=== PATIENT | male | born 1950 | race Caucasian/White ===

== ENCOUNTER → 2020-12-26 08:43 | Outpatient (CLI) | payer MEDICARE, OTHER ==
--- NOTE | ~2020-12-26 | EC ---
PATIENT:KACIE COOK DATE OF SERVICE: 12/26/20 SEX: M MEDICAL RECORD: [id number] DATE OF : 48 LOCATION:[facility] AGE OF PATIENT: 70 ADMISSION DATE: 12/26/20 REFERRING PHYSICIAN: INTERPRETING PHYSICIAN: ORALIA JAMES MD ECHOCARDIOGRAM REPORT ECHO CHARGES 4 ECHO COMPLETE Date: 12/26/20 CLINICAL DIAGNOSIS: CARDIAC NURMUR ECHOCARDIOGRAPHIC MEASUREMENTS (adult normal given) AC root (d.<3.7cm) 3.3 cm LV Septum d (<1.2 cm> 1.3 cm Valve Excursion 1.5 cm LV Septum (systole) 1.5 cm Left Atria (s.<4.0cm> 4.6 cm LVPW d(<1.2cm) 1.3 cm RV (d.<2.3cm) 4.1 cm LVPW (sytole) 1.2 cm LV diastole(<5.6CM) 5.0 cm MV E-F(>70mm/sec) cm LV systole 2.9 cm LVOT Diameter 1.8 cm MV exc.(>10mm) cm Est.ejection fraction (50-75%) 55 % DOPPLER: LVIT cm/sec A 104 cm/sec E 95 cm/sec LA cm/sec RVSP 95 mmHg LVOT 135 cm/sec AOP1/2T m/s Asc. Ao 215 cm/sec RVOT 95 cm/sec RA 3.4 cm/sec PA 124 cm/sec AV Gradient Peak 18 mmHg AV Mean 11 mmHg AV Area 1.7 cm MV Gradient Peak 5 mmHg MV Mean 2 mmHg MV Area cm COMMENTS: Apprentice Jockey: Delfina SOLORIO Aerial Lineman: 3 Dr. Howard TAPE# Pericardial Effusion N DATE OF SERVICE: FINDINGS: Mild LVH. LV internal dimension is normal. Wall motion is normal. EF is greater than or equal to 55%. Aortic valve is tricuspid. No evidence of stenosis by Doppler interrogation. Left atrium is dilated at 4.6 cm. Mitral valve shows no prolapse. Trace MR. Right side is grossly normal. Mild TR. TRANSINT:[id number] Voice Confirmation ID: [id number] DOCUMENT ID: [id number] ECHOCARDIOGRAM REPORT [id number] KACIE COOK ORALIA JAMES MD CC: [id number] DICTATION DATE: 12/26/20 1312 ONCOLOGY SOCIAL WORKER: 12/26/20 2308 [facility] [address] [id number]
== END | disposition home or self-care (01) ==
LOC: D.ECHO 08:43
PROVIDERS: ATTEND Family Medicine
DX: R01.1 Cardiac murmur, unspecified (principal)

== ENCOUNTER 2021-01-08 08:28 | Emergency (ER) | payer MEDICARE, OTHER ==
[~2021-01-08] VITALS: Ht 170.2 cm; Wt 104.5 kg
[2021-01-08 08:30] VITALS: BP 152/83; Ht 170.2 cm; Wt 104.5 kg
[2021-01-08] MEDS ORDERED: HYDROCODON-ACE1 EA10 PO (08:33)
[2021-01-08] MEDS ORDERED: FOLIC ACID1 MG PO (08:33)
[2021-01-08] MEDS ORDERED: ASPIRIN81 MG PO (08:33)
[2021-01-08] MEDS ORDERED: DONEPEZIL HCL5 MG PO (08:34)
[2021-01-08] MEDS ORDERED: TREXALL5 MG PO (08:34)
[2021-01-08] MEDS ORDERED: LISINOPRIL5 MG PO (08:35)
[2021-01-08 08:56] LABS: BASOPHILS 1.1 % (0-2); EOSINOPHILS 2.3 % (0-7); HEMATOCRIT 48.9 % (42.0-54.0); LYMPHOCYTES 30.6 % (15-50); MCH 29.4 pg (26.0-34.0); MCHC 32.7 g/dL (31.0-37.0); MCV 89.8 fL (80.0-100.0); MONOCYTES 9.2 % (2-11); NEUTROPHILS 56.8 % (40-80); PLATELET COUNT 489 10x3/uL (130-400); RBC 5.45 10x6/uL (4.20-6.10); WBC 11.6 10x3/uL (4.8-10.8)
[2021-01-08 09:07] LABS: CALC OSMOLALITY 279 mosm/kg (275-300); CALCIUM 8.7 mg/dL (8.5-10.1); CARBON DIOXIDE 27.7 mmol/L (21.0-32.0); CHLORIDE - SERUM 100 mmol/L (98-107); CREATININE - SERUM 1.3 mg/dL (0.6-1.3); GLUCOSE 164 mg/dL (74-106); POTASSIUM - SERUM 3.5 mmol/L (3.5-5.1); SODIUM 137 mmol/L (136-145); UREA NITROGEN 18 mg/dL (7-18); eGFR NON AFRICAN AMERICAN 58 mL/min (90-120)
[2021-01-08 09:25] LABS: ALBUMIN 3.8 g/dL (3.4-5.0); ALKALINE PHOSPHATASE 111 U/L (30-120); ALT (SGPT) 49 U/L (10-68); BILIRUBIN - TOTAL 0.76 mg/dL (0.2-1.3); CKMB 1.9 U/L (0.0-3.6); CREATINE KINASE 131 UL (21-232); PRO BNP 17 pg/mL (0-125); PROTEIN - SERUM 7.5 g/dL (6.4-8.2); TROPONIN-I < 0.017 ng/mL (0.000-0.060)
[2021-01-08 09:26] LABS: PROTIME 12.1 SECONDS (11.6-15.0)
[2021-01-08 09:27] LABS: INR 0.99 (0.85-1.17)
[2021-01-08 09:51] LABS: APTT 26.5 SECONDS (22.8-39.4); D-DIMER-QUANTITATIVE < 0.27 ug/mLFEU (0.20-0.54)
== END 2021-01-08 12:09 | disposition home or self-care (01) ==
LOC: D.ER 08:28
PROVIDERS: Emergency Medicine
DX: R55 Syncope and collapse (principal); V89.2XXA Person injured in unspecified motor-vehicle accident, traffic, initial encounter; Y93.9 Activity, unspecified; Y92.9 Unspecified place or not applicable; R11.2 Nausea with vomiting, unspecified